=== PATIENT | female | born 1975 | race Caucasian/White ===

== ENCOUNTER 2019-10-07 19:14 | Emergency (ER) | payer OTHER ==
[2019-10-07 19:39] VITALS: TEMP 97.9; BMI 25.2
[2019-10-07] MEDS ORDERED: SODIUM CHLORIDE 1,000 ML IV STA (20:52)
[2019-10-07] MEDS ORDERED: ACETAMINOPHEN 1000 MG/100 ML VIAL (NON FORMULARY) IVPB ONE (20:52)
--- NOTE | 2019-10-07 20:53 | PDOC ---
History of Present Illness <Tim Champagne - Last Filed: 10/08/19 00:51> - General History Source: Patient Exam Limitations: No Limitations <Yudith Roman - Last Filed: 10/08/19 19:34> - General Chief Complaint: Pain Stated Complaint: ABD PAIN Time Seen by Provider: 10/07/19 20:41 Past History <Tim Champagne - Last Filed: 10/08/19 00:51> - Travel Traveled outside of the country in the last 30 days: No Close contact w/someone who was outside of country & ill: No - Past Medical History CVA: No COPD: No HTN: Yes - Surgical History Abdominal Surgery: No - Psycho Social/Smoking Cessation Hx Smoking Status: No Smoking History: Never smoked Have you smoked in the past 12 months: No Number of Cigarettes Smoked Daily: 0 Information on smoking cessation initiated: No Hx Alcohol Use: No Drug/Substance Use Hx: No <Yudith Roman - Last Filed: 10/08/19 19:34> - Past Medical History Allergies/Adverse Reactions: Allergies Allergy/AdvReac Type Severity Reaction Status Date / Time No Known Allergies Allergy Verified 03/02/16 23:14 Home Medications: Ambulatory Orders Ibuprofen [Motrin -] 400 mg PO TID #20 tablet 05/26/12 Sulfamethoxazole/Trimethoprim [Bactrim Ds Tablet] 1 each PO BID #14 tablet 03/02 Review of Systems - Review of Systems Able to Perform ROS?: Yes Comments:: 10/08/19 01:41 CONSTITUTIONAL: Absent: fever, chills, diaphoresis, generalized weakness, malaise, loss of appetite HEENT: Absent: rhinorrhea, nasal congestion, throat pain, throat swelling, difficulty swallowing, mouth swelling, ear pain, eye pain, visual Changes CARDIOVASCULAR: Absent: chest pain, loss of consciousness, palpitations, irregular heart rate, peripheral edema RESPIRATORY: Absent: cough, shortness of breath, dyspnea with exertion, orthopnea, wheezing, stridor, hemoptysis GASTROINTESTINAL: Present: abdominal pain, nausea Absent: abdominal distension, vomiting, diarrhea , constipation, melena, hematochezia GENITOURINARY: Absent: dysuria, frequency, urgency, hesitancy, hematuria, flank pain, genital pain MUSCULOSKELETAL: Absent: myalgia, arthralgia, joint swelling SKIN: Absent: rash, itching, pallor NEUROLOGIC: Absent: headache, focal weakness or paresthesias, dizziness, unsteady gait, seizure, mental status changes, bladder or bowel incontinence PSYCHIATRIC: Absent: anxiety, depression, suicidal or homicidal ideation, hallucinations. Is the patient limited Guyanese proficient: No <Yudith Rmoan - Last Filed: 10/08/19 19:34> *Physical Exam - Vital Signs Last Vital Signs Temp Pulse Resp BP Pulse Ox 97.9 F 73 16 149/85 100 10/07/19 19:36 10/07/19 19:36 10/07/19 19:36 10/07/19 19:36 10/07/19 19:36 <Tim Champagne - Last Filed: 10/08/19 00:51> - Vital Signs Last Vital Signs Temp Pulse Resp BP Pulse Ox 97.9 F 73 16 149/85 100 10/07/19 19:36 10/07/19 19:36 10/07/19 19:36 10/07/19 19:36 10/07/19 19:36 - Physical Exam 10/08/19 01:41 GENERAL: Well developed, well nourished. Awake and alert. No acute distress. HEENT: Normocephalic, atraumatic. PERRLA, EOMI. No conjunctival pallor. Sclera are non- icteric. Moist mucous membranes. Oropharynx is clear. NECK: Supple. Full ROM. CARDIOVASCULAR: Regular rate and rhythm. No murmurs, rubs, or gallops. Distal pulses are 2+ and symmetric. PULMONARY: No evidence of respiratory distress. Lungs clear to auscultation bilaterally. No wheezing, rales or rhonchi. ABDOMINAL: TTP of the RLQ, suprapubic area, LLQ, with the most pain over the suprapubic area. Soft. Non-distended. No rebound or guarding. No organomegaly. Normoactive bowel sounds. MUSCULOSKELETAL Normal range of motion at all joints. No bony deformities or tenderness. No CVA tenderness. EXTREMITIES: No cyanosis. No clubbing. No edema. No calf tenderness. SKIN: Warm and dry. Normal capillary refill. No rashes. No jaundice. NEUROLOGICAL: Alert, awake, appropriate. Cranial nerves 2-12 intact. No deficits to light touch and temperature in face, upper extremities and lower extremities. No motor deficits in the in face, upper extremities and lower extremities. Normoreflexic in the upper and lower extremities. Normal speech. Toes are down- going bilaterally. Gait is normal without ataxia. PSYCHIATRIC: Cooperative. Good eye contact. Appropriate mood and affect. <Yudith Roman - Last Filed: 10/08/19 19:34> ED Treatment Course - LABORATORY CBC & Chemistry Diagram: 10/07/19 21:30 10/07/19 21:30 - ADDITIONAL ORDERS Additional order review: Laboratory Results 10/07/19 10/07/19 21:30 21:30 PT with INR 12.80 INR 1.08 Sodium 138 Potassium 3.7 Chloride 104 Carbon Dioxide 28 Anion Gap 6 L BUN 11.0 Creatinine 0.7 Est GFR (CKD-EPI)AfAm 121.27 Est GFR (CKD-EPI)NonAf 104.64 Random Glucose 91 Calcium 9.0 Total Bilirubin 0.7 AST 18 ALT 17 Alkaline Phosphatase 92 Total Protein 7.8 Albumin 3.6 10/07/19 21:30 RBC 5.15 MCV 84.5 MCHC 32.8 RDW 13.8 MPV 8.1 Neutrophils % 55.6 Lymphocytes % 30.7 Monocytes % 10.9 H Eosinophils % 1.2 Basophils % 1.6 - Medications Given in the ED: ED Medications Discontinued Medications Generic Name Dose Route Start Last Admin Trade Name Timoteoq PRN Reason Stop Dose Admin Acetaminophen 1,000 mg 10/07/19 20:52 10/07/19 21:32 Ofirmev Injection - IVPB 10/07/19 20:53 1,000 mg ONCE ONE Administration Sodium Chloride 1,000 mls @ 1,000 mls/hr 10/07/19 20:52 10/07/19 21:32 Normal Saline - IV 10/07/19 21:51 1,000 mls/hr ASDIR STA Administration Morphine Sulfate 4 mg 10/07/19 23:44 10/08/19 00:37 Morphine Injection - IVPUSH 10/07/19 23:45 4 mg ONCE ONE Administration <Tim Champagne - Last Filed: 10/08/19 00:51> - LABORATORY CBC & Chemistry Diagram: 10/07/19 21:30 10/07/19 21:30 <Yudith Roman - Last Filed: 10/08/19 19:34> Medical Decision Making - Medical Decision Making 10/08/19 00:51 The patient was seen and evaluated in conjunction with JOSE LUIS Roman under my direct supervision, ancillary studies were reviewed. I independently evaluated the patient and I agree with the plan as outlined by JOSE LUIS Roman . <Tim Champagne - Last Filed: 10/08/19 00:51> - Medical Decision Making 10/08/19 01:42 The patient is a 44 y/o F with PMH of HTN who presents to the ER with lower abdominal pain since Saturday10/02/19. She states the pain is mostly in her lower abdomen. She states the pain is colicky in nature and nothing makes it better or worse. She states that she has taken Motrin and Tylenol with out relief of her symptoms. She states her last menstrual cycle 09/22/19. Denies fevers, chills, vomiting, constipation, diarrhea, vaginal discharge and urinary symptoms. A/P: Lower abdominal pain On exam pt with pain to the RLQ, LLQ, suprapubic pain. No rebound or guarding Worse pain over the suprapubic pain. DDx includes but is not limited to: Appy, torsion, ovarian cysts, UTI, pyelo, diverticulitis Labs grossly unremarkable Pending urine Ofirmev, morphine, zofran given for symptoms. TVUS shows no evidence of torsion or ovarian cysts Pending Urine preg for CT scan Sign out given to night team. Dispo pending CT results. <Yudith Roman - Last Filed: 10/08/19 19:34> Discharge <Tim Champagne - Last Filed: 10/08/19 00:51> - Discharge Information Problems reviewed: Yes <Yudith Roman - Last Filed: 10/08/19 19:34> - Discharge Information Clinical Impression/Diagnosis: Ovarian cyst, right Abdominal pain Qualifiers: Abdominal location: lower abdomen, unspecified Qualified Code(s): R10.30 - Lower abdominal pain, unspecified Condition: Good Disposition: HOME - Patient Discharge Instructions Patient Printed Discharge Instructions: DI for Ovarian Cyst Additional Instructions: You have been seen in the Emergency Department for your abdominal pain. Your CT scan shows that you have an ovarian cyst and fibroids in your uterus, which is most likely causing your pain. It also shows a tiny right kidney stone. If you experience pain, you can take Tylenol or Ibuprofen as directed on the medication bottle, but do not exceed 3g of Ibuprofen or 4g of Tylenol a day. Follow-up with your shadowgraph operator and your primary care doctor within 1 week for further evaluation. Return to the ED immediately if you experience severe abdominal pain, vomiting, fever, blood in your urine, passing out, or any other new or worsening symptom.
[2019-10-07] MEDS ORDERED: ACETAMINOPHEN INJECTION 100 ML IVPB ONE (21:16)
[2019-10-07 21:37] LABS: BASO % 1.6 % (0-2.0); EOS % 1.2 % (0-4.5); HEMATOCRIT 43.5 % (32.4-45.2); HEMOGLOBIN 14.3 GM/dL (10.7-15.3); LYMPH % 30.7 % (8-40); MCH 27.7 pg (25.7-33.7); MCHC 32.8 g/dl (32.0-36.0); MEAN CELL VOLUME 84.5 fl (80-96); MEAN PLT VOLUME 8.1 fl (7.5-11.1); MONO % 10.9 % (3.8-10.2); NEUT % 55.6 % (42.8-82.8); PLATELET COUNT 240 K/MM3 (134-434); RBC 5.15 M/mm3 (3.60-5.2); RDW 13.8 % (11.6-15.6)
[2019-10-07 21:55] LABS: INR 1.08 (0.83-1.09); PROTHROMBIN TIME (PATIENT) 12.8 SEC (9.7-13.0)
[2019-10-07 22:05] LABS: ALBUMIN 3.6 g/dl (3.4-5.0); BILIRUBIN,TOTAL 0.7 mg/dL (0.2-1); CREATININE 0.7 mg/dL (0.55-1.3); POTASSIUM 3.7 mmol/L (3.5-5.1); TOT PROT 7.8 g/dl (6.4-8.2)
[2019-10-07] MEDS ORDERED: morphine CARPU-JECT 4 MG/1 ML DISP.SYRIN IVPUSH ONE (23:44)
[2019-10-08] MEDS ORDERED: morphine SULFATE 4 MG/ML VIAL ONE (00:28)
--- NOTE | 2019-10-08 01:58 | PDOC ---
*Physical Exam - Vital Signs Last Vital Signs Temp Pulse Resp BP Pulse Ox 97.9 F 73 16 149/85 100 10/07/19 19:36 10/07/19 19:36 10/07/19 19:36 10/07/19 19:36 10/07/19 19:36 <Meagan Rankin - Last Filed: 10/08/19 05:06> - Vital Signs Last Vital Signs Temp Pulse Resp BP Pulse Ox 97.9 F 73 16 149/85 100 10/07/19 19:36 10/07/19 19:36 10/07/19 19:36 10/07/19 19:36 10/07/19 19:36 <Trudy Ibanez - Last Filed: 10/08/19 05:42> ED Treatment Course - LABORATORY CBC & Chemistry Diagram: 10/07/19 21:30 10/07/19 21:30 - ADDITIONAL ORDERS Additional order review: Laboratory Results 10/08/19 10/07/19 10/07/19 03:15 21:30 21:30 PT with INR 12.80 INR 1.08 Sodium 138 Potassium 3.7 Chloride 104 Carbon Dioxide 28 Anion Gap 6 L BUN 11.0 Creatinine 0.7 Est GFR (CKD-EPI)AfAm 121.27 Est GFR (CKD-EPI)NonAf 104.64 Random Glucose 91 Calcium 9.0 Total Bilirubin 0.7 AST 18 ALT 17 Alkaline Phosphatase 92 Total Protein 7.8 Albumin 3.6 Urine HCG, Qual Negative 10/07/19 21:30 RBC 5.15 MCV 84.5 MCHC 32.8 RDW 13.8 MPV 8.1 Neutrophils % 55.6 Lymphocytes % 30.7 Monocytes % 10.9 H Eosinophils % 1.2 Basophils % 1.6 - Medications Given in the ED: ED Medications Discontinued Medications Generic Name Dose Route Start Last Admin Trade Name Freq PRN Reason Stop Dose Admin Acetaminophen 1,000 mg 10/07/19 20:52 10/07/19 21:32 Ofirmev Injection - IVPB 10/07/19 20:53 1,000 mg ONCE ONE Administration Sodium Chloride 1,000 mls @ 1,000 mls/hr 10/07/19 20:52 10/07/19 21:32 Normal Saline - IV 10/07/19 21:51 1,000 mls/hr ASDIR STA Administration Morphine Sulfate 4 mg 10/07/19 23:44 10/08/19 00:37 Morphine Injection - IVPUSH 10/07/19 23:45 4 mg ONCE ONE Administration <Meagan Rankin Massielyessicajulien - Last Filed: 10/08/19 05:06> - LABORATORY CBC & Chemistry Diagram: 10/07/19 21:30 10/07/19 21:30 - ADDITIONAL ORDERS Additional order review: Laboratory Results 10/07/19 10/07/19 21:30 21:30 PT with INR 12.80 INR 1.08 Sodium 138 Potassium 3.7 Chloride 104 Carbon Dioxide 28 Anion Gap 6 L BUN 11.0 Creatinine 0.7 Est GFR (CKD-EPI)AfAm 121.27 Est GFR (CKD-EPI)NonAf 104.64 Random Glucose 91 Calcium 9.0 Total Bilirubin 0.7 AST 18 ALT 17 Alkaline Phosphatase 92 Total Protein 7.8 Albumin 3.6 10/07/19 21:30 RBC 5.15 MCV 84.5 MCHC 32.8 RDW 13.8 MPV 8.1 Neutrophils % 55.6 Lymphocytes % 30.7 Monocytes % 10.9 H Eosinophils % 1.2 Basophils % 1.6 - Medications Given in the ED: ED Medications Discontinued Medications Generic Name Dose Route Start Last Admin Trade Name Freq PRN Reason Stop Dose Admin Acetaminophen 1,000 mg 10/07/19 20:52 10/07/19 21:32 Ofirmev Injection - IVPB 10/07/19 20:53 1,000 mg ONCE ONE Administration Sodium Chloride 1,000 mls @ 1,000 mls/hr 10/07/19 20:52 10/07/19 21:32 Normal Saline - IV 10/07/19 21:51 1,000 mls/hr ASDIR STA Administration Morphine Sulfate 4 mg 10/07/19 23:44 10/08/19 00:37 Morphine Injection - IVPUSH 10/07/19 23:45 4 mg ONCE ONE Administration <Trudy Ibanez - Last Filed: 10/08/19 05:42> Medical Decision Making - Medical Decision Making 10/08/19 01:58 Received sign out. Pending urine - likely d/c 10/08/19 05:38 UA negative. Will d/c home. <Trudy Ibanez - Last Filed: 10/08/19 05:42> Discharge - Admission No <Meagan Rankin - Last Filed: 10/08/19 05:06> - Discharge Information Problems reviewed: Yes - Admission No <Trudy Ibanez - Last Filed: 10/08/19 05:42> - Discharge Information Clinical Impression/Diagnosis: Ovarian cyst, right Abdominal pain Qualifiers: Abdominal location: lower abdomen, unspecified Qualified Code(s): R10.30 - Lower abdominal pain, unspecified Condition: Good Disposition: HOME - Patient Discharge Instructions Patient Printed Discharge Instructions: DI for Ovarian Cyst Additional Instructions: You have been seen in the Emergency Department for your abdominal pain. Your CT scan shows that you have an ovarian cyst and fibroids in your uterus, which is most likely causing your pain. It also shows a tiny right kidney stone. If you experience pain, you can take Tylenol or Ibuprofen as directed on the medication bottle, but do not exceed 3g of Ibuprofen or 4g of Tylenol a day. Follow-up with your activities aide and your primary care doctor within 1 week for further evaluation. Return to the ED immediately if you experience severe abdominal pain, vomiting, fever, blood in your urine, passing out, or any other new or worsening symptom.
[2019-10-08 05:32] LABS: URINE APPEARANCE CLEAR; URINE COLOR YELLOW
[2019-10-08 05:33] LABS: URINE BILIRUBIN NEGATIVE (NEGATIVE); URINE GLUCOSE (UA) NEGATIVE (NEGATIVE); URINE KETONE NEGATIVE (NEGATIVE); URINE PROTEIN NEGATIVE (NEGATIVE); URINE UROBILINOGEN 0.2 mg/dL (0.2-1.0)
[2019-10-08 05:34] LABS: URINE LEUK ESTERASE NEGATIVE (NEGATIVE); URINE NITRITE NEGATIVE (NEGATIVE)
[2019-10-08 06:01] VITALS: BP 138/82; PULSE 76
== END 2019-10-08 06:03 | disposition home or self-care (01) ==
LOC: JER 19:14
PROC: 3E033NZ Introduction of Analgesics, Hypnotics, Sedatives into Peripheral Vein, Percutaneous Approach (ICD-10-PCS; principal; 2019-10-07)
DX: R10.30 Lower abdominal pain, unspecified (principal); N83.209 Unspecified ovarian cyst, unspecified side
CPT/HCPCS: 36415; 74177-TC; 76830-TC; 80053; 81003; 84703; 85025; 85610; 87077; 87086; 87186; 99283-25; J0131; J7030

== ENCOUNTER 2022-02-23 13:21 | Emergency (ER) | payer OTHER ==
[2022-02-23 13:30] VITALS: BP 139/86; PULSE 87; TEMP 97.8; BMI 24.0
[2022-02-23 14:46] LABS: URINE APPEARANCE CLEAR; URINE BILIRUBIN NEGATIVE (NEGATIVE); URINE COLOR YELLOW; URINE GLUCOSE (UA) NEGATIVE (NEGATIVE); URINE KETONE NEGATIVE (NEGATIVE); URINE LEUK ESTERASE NEGATIVE (NEGATIVE); URINE NITRITE NEGATIVE (NEGATIVE); URINE PROTEIN NEGATIVE (NEGATIVE); URINE UROBILINOGEN 0.2 mg/dL (0.2-1.0)
[2022-02-23 14:53] LABS: BASO % 0.5 % (0-2.0); EOS % 1.5 % (0-4.5); HEMATOCRIT 42.5 % (32.4-45.2); LYMPH % 37.8 % (8-40); MCH 28.5 pg (25.7-33.7); MEAN CELL VOLUME 86.2 fl (80-96); MONO % 10.4 % (3.8-10.2); NEUT % 49.8 % (42.8-82.8); PLATELET COUNT 225 10^3/uL (134-434); RBC 4.93 M/mm3 (3.60-5.2); RDW 13.1 % (11.6-15.6); WHITE BLOOD COUNT 3.8 K/mm3 (4.0-10.0)
[2022-02-23 15:13] LABS: ALBUMIN 3.7 g/dl (3.4-5.0); BLOOD UREA NITROGEN 11.9 mg/dL (7-18); MAGNESIUM 2.1 mg/dL (1.8-2.4)
[2022-02-23 15:16] LABS: CREATININE 0.7 mg/dL (0.55-1.3)
[2022-02-23 15:17] LABS: BILIRUBIN,TOTAL 0.7 mg/dL (0.2-1)
[2022-02-23 15:18] LABS: TOT PROT 7.6 g/dl (6.4-8.2)
[2022-02-23] MEDS ORDERED: CYCLOBENZAPRINE HCL 10 MG TABLET (FP) PO ONE (16:28)
[2022-02-23] MEDS ORDERED: IBUPROFEN 600 MG TABLET (FP) PO ONE ×3 (16:28→16:46)
[2022-02-23] MEDS ORDERED: CYCLOBENZAPRINE HCL 10 MG TABLET (FP) ONE ×2 (16:36→16:46)
== END 2022-02-23 16:55 | disposition home or self-care (01) ==
LOC: JER 13:21
DX: S56.912A Strain of unspecified muscles, fascia and tendons at forearm level, left arm, initial encounter (principal); X50.3XXA Overexertion from repetitive movements, initial encounter
CPT/HCPCS: 0241U-QW; 36415; 70450-TC; 72125-TC; 80053; 81003; 83735; 85025; 99285-25

== ENCOUNTER 2022-04-08 17:17 | Emergency (ER) | payer OTHER ==
[2022-04-08 17:24] VITALS: BP 145/76; PULSE 74; TEMP 98.1; BMI 23.8
[2022-04-08 18:34] LABS: BASO % 1.2 % (0-2.0); HEMATOCRIT 40.5 % (32.4-45.2); HEMOGLOBIN 13.7 GM/dL (10.7-15.3); LYMPH % 37.9 % (8-40); MCH 28.7 pg (25.7-33.7); MCHC 33.8 g/dl (32.0-36.0); MEAN PLT VOLUME 7.8 fl (7.5-11.1); MONO % 10.3 % (3.8-10.2); NEUT % 48.6 % (42.8-82.8); PLATELET COUNT 270 10^3/uL (134-434); RBC 4.77 M/mm3 (3.60-5.2); RDW 13.1 % (11.6-15.6); WHITE BLOOD COUNT 4.4 K/mm3 (4.0-10.0)
[2022-04-08 18:58] LABS: ALBUMIN 3.6 g/dl (3.4-5.0); BLOOD UREA NITROGEN 17.6 mg/dL (7-18); CALCIUM 9.2 mg/dL (8.5-10.1)
[2022-04-08 19:01] LABS: CREATININE 0.7 mg/dL (0.55-1.3)
[2022-04-08 19:03] LABS: BILIRUBIN,TOTAL 0.3 mg/dL (0.2-1); TOT PROT 7.7 g/dl (6.4-8.2)
[2022-04-08 19:48] LABS: PH,URINE 5.5 (5.0-8.0); URINE APPEARANCE CLEAR; URINE BILIRUBIN NEGATIVE (NEGATIVE); URINE COLOR YELLOW; URINE GLUCOSE (UA) NEGATIVE (NEGATIVE); URINE KETONE NEGATIVE (NEGATIVE); URINE LEUK ESTERASE NEGATIVE (NEGATIVE); URINE NITRITE NEGATIVE (NEGATIVE); URINE PROTEIN NEGATIVE (NEGATIVE); URINE UROBILINOGEN 0.2 mg/dL (0.2-1.0)
[2022-04-08 19:51] LABS: HCG,QUALITATIVE URINE Negative
== END 2022-04-08 22:32 | disposition home or self-care (01) ==
LOC: JER 17:17
DX: R10.31 Right lower quadrant pain (principal)
CPT/HCPCS: 36415; 74177-TC; 80053; 81003; 84703; 85025; 86850; 86900; 86901; 87086; 99285-25; Q9967